=== PATIENT | male | born 1975 | race Caucasian/White ===

== ENCOUNTER 2017-11-03 22:26 | Inpatient (IN) | payer MEDICAID ==
[~2017-11-03] VITALS: Ht 182.9 cm; Wt 81.8 kg
[~2017-11-03 22:26] MED LIST: HYDR25SU33 RC
[2017-11-03 22:47] LABS: BASOPHILS # (AUTO) 0.1 X10'3 (0-0.2); BASOPHILS % (AUTO) 0.4 % (0-1); EOSINOPHILS # (AUTO) 0.5 X10'3 (0-0.9); EOSINOPHILS % (AUTO) 4.1 % (0-6); HEMATOCRIT 37.4 % (42.0-52.0); HEMOGLOBIN 12.6 g/dl (14.0-17.9); LYMPHOCYTES # (AUTO) 2.6 X10'3 (1.1-4.8); LYMPHOCYTES % (AUTO) 22.6 % (21-51); MEAN CORPUSCULAR HEMOGLOBIN 30.8 PG (27.0-31.0); MEAN CORPUSCULAR HGB CONC 33.8 % (33.0-36.5); MEAN CORPUSCULAR VOLUME 91.2 FL (78-98); MEAN PLATELET VOLUME 6.6 FL (7.4-10.4); MONOCYTES # (AUTO) 0.9 X10'3 (0-0.9); MONOCYTES % (AUTO) 7.6 % (2-12); NEUTROPHILS # (AUTO) 7.6 X10'3 (1.8-7.7); NEUTROPHILS % (AUTO) 65.3 % (42-75); PLATELET COUNT 276 X10'3 (140-440); RED CELL DISTRIBUTION WIDTH 12.9 % (11.5-14.5); WHITE BLOOD COUNT 11.7 X10'3 (4.5-11.0)
[2017-11-03 23:03] LABS: ALANINE AMINOTRANSFERASE 31 U/L (12-78); ALBUMIN 3.8 G/DL (3.4-5.0); ALBUMIN/GLOBULIN RATIO 1.2 (1.1-1.5); ALKALINE PHOSPHATASE 62 IU/L (46-116); ANION GAP 7 (8-16); ASPARTATE AMINO TRANSFERASE 19 U/L (10-37); BILIRUBIN,TOTAL 0.4 MG/DL (0.1-1.0); BLOOD UREA NITROGEN 19 MG/DL (7-18); BUN/CREATININE RATIO 23.8 (5.4-32.0); CALCIUM 8.6 MG/DL (8.5-10.1); CHLORIDE 107 MMOL/L (99-107); CREATINE KINASE 260 U/L (39-308); ETHANOL < 0.010 GM/DL (0.0-0.010); GLUCOSE 127 MG/DL (70-104); SODIUM 139 MMOL/L (135-145); TOTAL CARBON DIOXIDE 24.7 MMOL/L (24-32); TROPONIN I < 0.04 NG/ML (0.0-0.05); eGFR > 90 ML/MIN
[2017-11-03 23:08] LABS: PARTIAL THROMBOPLASTIN TIME 22 SECONDS (22-32); PROTHROMBIN TIME 10.4 SECONDS (9.0-12.0)
[2017-11-03] MEDS ORDERED: TETanus/Pertussis (Acell)/Diphther VAC/PF (Tdap-Adult) 0.5ml syringe IM ONE (23:10)
[2017-11-03] MEDS ORDERED: HYDROmorphone inj. 0.5 MG/0.5 ML DISP.SYRIN IV ONE (23:10)
[2017-11-03] MEDS ORDERED: ondansetron/PF 4mg/2ml inj IV PRN (23:40)
[2017-11-04] MEDS ORDERED: ceFAZolin inj. 1,000 MG in dextrose 5%-water 50ml 50 ML IV SCH ×2
[2017-11-04] MEDS ORDERED: HYDROmorphone 1 mg/ml syringe IV ONE (00:15)
[2017-11-04] MEDS: cefazolin 1gm/NS 100mL 100 ML IV SCH ×2 (00:41→03:41)
[2017-11-04 01:30] VITALS: BP 115/60
[2017-11-04] MEDS: HYDROcodone/acetaminophen 10/325mg tab PO PRN ×2 (03:41→13:26)
[2017-11-04] MEDS: Potassium Cl inj 20 MEQ in ringers solution, lacted 1,000 ML IV SCH ×3 (03:42→16:27)
[2017-11-04 06:15] LABS: BASOPHILS % (AUTO) 0.3 % (0-1); EOSINOPHILS # (AUTO) 0.2 X10'3 (0-0.9); EOSINOPHILS % (AUTO) 1.1 % (0-6); HEMOGLOBIN 11.4 g/dl (14.0-17.9); LYMPHOCYTES # (AUTO) 1.8 X10'3 (1.1-4.8); LYMPHOCYTES % (AUTO) 13.5 % (21-51); MEAN CORPUSCULAR HEMOGLOBIN 30.7 PG (27.0-31.0); MEAN CORPUSCULAR HGB CONC 33.6 % (33.0-36.5); MEAN CORPUSCULAR VOLUME 91.3 FL (78-98); MEAN PLATELET VOLUME 7.3 FL (7.4-10.4); MONOCYTES % (AUTO) 7.5 % (2-12); NEUTROPHILS # (AUTO) 10.5 X10'3 (1.8-7.7); NEUTROPHILS % (AUTO) 77.6 % (42-75); PLATELET COUNT 241 X10'3 (140-440); RED BLOOD COUNT 3.73 X10'6 (4.70-6.10); RED CELL DISTRIBUTION WIDTH 13.3 % (11.5-14.5); WHITE BLOOD COUNT 13.6 X10'3 (4.5-11.0)
[2017-11-04 07:30] VITALS: BP_SYST 104; BP_SYST 107; BP_DIAS 60; BP_DIAS 67
[2017-11-04] MEDS ORDERED: lactobacillus rhamnosus 10,000 MMU CELLS/CAPSULE PO SCH (07:30)
[2017-11-04] MEDS ORDERED: cefazolin 1gm/NS 100mL 100 ML IV SCH (08:00)
[2017-11-04] MEDS ORDERED: NO HOME MEDS (09:35)
[2017-11-04 11:00] VITALS: BP 107/67
[2017-11-04 20:00] VITALS: BP 113/67
[2017-11-05] VITALS: BP 120/72
[2017-11-05] MEDS: Potassium Cl inj 20 MEQ in ringers solution, lacted 1,000 ML IV SCH ×2 (00:54→07:59)
[2017-11-05 05:23] LABS: BASOPHILS % (AUTO) 0.6 % (0-1); EOSINOPHILS # (AUTO) 0.4 X10'3 (0-0.9); EOSINOPHILS % (AUTO) 6.3 % (0-6); HEMATOCRIT 32.7 % (42.0-52.0); HEMOGLOBIN 11.1 g/dl (14.0-17.9); LYMPHOCYTES # (AUTO) 2.1 X10'3 (1.1-4.8); LYMPHOCYTES % (AUTO) 31.2 % (21-51); MEAN CORPUSCULAR VOLUME 90.9 FL (78-98); MEAN PLATELET VOLUME 6.8 FL (7.4-10.4); MONOCYTES # (AUTO) 0.9 X10'3 (0-0.9); MONOCYTES % (AUTO) 13.1 % (2-12); NEUTROPHILS # (AUTO) 3.2 X10'3 (1.8-7.7); NEUTROPHILS % (AUTO) 48.8 % (42-75); PLATELET COUNT 225 X10'3 (140-440); RED CELL DISTRIBUTION WIDTH 12.9 % (11.5-14.5); WHITE BLOOD COUNT 6.6 X10'3 (4.5-11.0)
[2017-11-05 06:40] VITALS: BP 121/66
[2017-11-05] MEDS ORDERED: LACTOBACILLUS RHAMNOSUS GG 15 billion unit sprinkle caps PO SCH (07:30)
[2017-11-05 11:00] VITALS: BP 121/74
== END 2017-11-05 13:50 | disposition home or self-care (01) | DRG 342 ==
LOC: ER 22:27 → OBSVTOIN 23:36 → ED HOLD 23:36 → EEVIPCON 23:36 → SUR 3N 11-04 01:55
PROVIDERS: ADMIT Surgery; ATTEND Surgery
DX: S42.101 Fracture of unspecified part of scapula, right shoulder (principal); F12.90 Cannabis use, unspecified, uncomplicated; G89.29 Other chronic pain; M54.9 Dorsalgia, unspecified; Z98.52 Vasectomy status; X93.XXXA Assault by handgun discharge, initial encounter; Y93.89 Activity, other specified; Y92.89 Other specified places as the place of occurrence of the external cause; Y99.8 Other external cause status
CPT/HCPCS: 36415; 70450; 71045; 71250; 72125; 74176; 80053; 80320; 82550; 84484; 85025; 85610; 85730; 86885; 86900; 86901; 87070; 90715; 93005; 99285; A6213; A6255; A6257; A6258; A6449; J0690; J1170; J3480; J7030; J7060; J7120

== ENCOUNTER 2023-02-25 10:44 | Emergency (ER) | payer MEDICAID ==
[~2023-02-25] VITALS: Ht 185.4 cm; Wt 71.0 kg
[~2023-02-25 10:44] MED LIST changes: -HYDR25SU33 RC; +NO HOME MEDS
[2023-02-25 12:02] VITALS: BP 132/93
== END 2023-02-25 12:32 | disposition home or self-care (01) ==
LOC: ER 10:44
DX: H33.8 Other retinal detachments (principal); G89.29 Other chronic pain; M54.9 Dorsalgia, unspecified; F12.10 Cannabis abuse, uncomplicated; Z79.899 Other long term (current) drug therapy
CPT/HCPCS: 76512; 99284; A6258

== ENCOUNTER 2024-02-26 14:30 | Emergency (ER) | payer MEDICAID ==
[~2024-02-26] VITALS: Ht 182.9 cm; Wt 74.5 kg
[2024-02-26 14:31] VITALS: BP 123/81; PULSE 91; TEMP 98.8; O2SAT 95
[2024-02-26] MEDS ORDERED: ketorolac trometh inj. 60 MG/2 ML VIAL IM ONE (15:50)
[2024-02-26] MEDS: cyclobenzaprine 10mg tablet PO ONE (15:56)
[2024-02-26] MEDS: HYDROcodone/acetaminophen 5mg/325mg tablet PO ONE (15:56)
[2024-02-26] MEDS: ondansetron 4mg rapidly disintigrating tab PO ONE (15:56)
[2024-02-26] MEDS ORDERED: LIDO700A32 TOP (16:10)
[2024-02-26] MEDS ORDERED: CYCL-1 PO (16:10)
[2024-02-26] MEDS ORDERED: PRED20TA PO (16:10)
[2024-02-26 16:11] VITALS: RESP 18
[2024-02-26] MEDS: ketorolac trometh. 30mg/ml inj. IM ONE (16:11)
[2024-02-26] MEDS: dexamethasone sod phosphate 10mg/ml inj IM STA (16:11)
== END 2024-02-26 16:40 | disposition home or self-care (01) ==
LOC: ER 14:30
DX: S39.012A Strain of muscle, fascia and tendon of lower back, initial encounter (principal); F17.200 Nicotine dependence, unspecified, uncomplicated; F12.90 Cannabis use, unspecified, uncomplicated; X58.XXXA Exposure to other specified factors, initial encounter; Y93.89 Activity, other specified; Y92.89 Other specified places as the place of occurrence of the external cause; Y99.8 Other external cause status
CPT/HCPCS: 96372; 99284; J1100; J1885

== ENCOUNTER 2024-06-23 09:01 | Emergency (ER) | payer MEDICAID ==
[~2024-06-23] VITALS: Ht 182.9 cm; Wt 86.4 kg
[~2024-06-23 09:01] MED LIST changes: +CYCL-1 PO; +LIDO700A32 TOP
[2024-06-23 09:19] VITALS: BP 129/89; PULSE 83; RESP 16; TEMP 98.9; O2SAT 97
[2024-06-23] MEDS ORDERED: LORA-268 PO (09:37)
[2024-06-23] MEDS: LORazepam 1 MG tablet PO ONE (09:44)
== END 2024-06-23 09:58 | disposition home or self-care (01) ==
LOC: ER 09:02
DX: F41.9 Anxiety disorder, unspecified (principal); G89.29 Other chronic pain; M54.9 Dorsalgia, unspecified; F12.90 Cannabis use, unspecified, uncomplicated; Z79.899 Other long term (current) drug therapy
CPT/HCPCS: 99283

== ENCOUNTER 2024-12-12 08:32 | Emergency (ER) | payer MEDICAID ==
[~2024-12-12] VITALS: Ht 182.9 cm; Wt 89.1 kg
[~2024-12-12 08:32] MED LIST changes: +LORA-268 PO
[2024-12-12 08:36] VITALS: BP 141/64; PULSE 91; RESP 18; TEMP 97.8; O2SAT 99
[2024-12-12] MEDS ORDERED: dexamethasone sod phosphate 10mg/ml inj IM STA (09:26)
[2024-12-12] MEDS ORDERED: ketorolac trometh 30MG/ML vial 30 MG/ML VIAL IM ONE (09:30)
[2024-12-12] MEDS ORDERED: cyclobenzaprine 10mg tablet PO ONE (09:30)
[2024-12-12] MEDS ORDERED: ondansetron 4mg rapidly disintigrating tab PO ONE (12:20)
[2024-12-12] MEDS ORDERED: HYDROcodone/acetaminophen 10/325mg tab PO ONE (12:20)
[2024-12-12] MEDS ORDERED: PRED20TA PO (12:37)
[2024-12-13] MEDS ORDERED: LIDOcaine 5% patch TP SCH (08:00)
== END 2024-12-12 12:59 | disposition left against medical advice (07) ==
LOC: ER 08:33
DX: M54.41 Lumbago with sciatica, right side (principal); M54.42 Lumbago with sciatica, left side; F12.90 Cannabis use, unspecified, uncomplicated; Z98.890 Other specified postprocedural states
CPT/HCPCS: 72100; 99283